=== PATIENT | male | born 1955 | race Caucasian/White ===

== ENCOUNTER → 2016-08-07 | Outpatient (CLI) | payer OTHER ==
--- NOTE | 2016-08-07 17:09 | DX ---
Cervical Spine, Three Views History: Follow-up cervical fractures, S12.9 XXD Comparison: April 17, 2016 Findings: Alignment is anatomic. Spinous process fractures of C5 and C6 have solidly healed.. It is d ifficult to determine if the displaced T1 spinous process fracture demonstrates evidence for healing or not, due to overlying soft tissue from the shoulders. There is no prevertebral soft tissue swellin g. No fracture is identified. Impression: The C5 and C6 spinous process fractures have solidly healed. Indeterminate evaluation of the T1 spinous process fracture..
--- NOTE | 2016-08-07 17:16 | DX ---
Thoracic spine, three views History: Follow-up fusion, S22.058D Comparison: March 20, 2016, Findings: Alignment is anatomic. A mild thoracic dextroscoliosis is unchanged. A thoracic kyphosis is stable at approximately 55 degrees. Bilateral transpedicular screws and vertical supporting rods bet ween T4 and T9, sparing the pedicles of T7, appears stable. There is no evidence for right fracture o r uncoupling. There is no evidence for screw loosening. There is no paraspinal stripe widening. There is stable compressions of T5, T6 and T7. No new compressions have developed. Impression: Stable x5 months..
== END ==
LOC: BRMIMAGING 16:01
PROVIDERS: ATTEND Neurological Surgery
DX: S22.058D Other fracture of T5-T6 vertebra, subsequent encounter for fracture with routine healing (principal)
CPT/HCPCS: 72040-PO; 72070-PO

== ENCOUNTER → 2017-03-12 | Outpatient (CLI) | payer OTHER | LOC: BRMIMAGING 08:41 | PROVIDERS: ATTEND Neurological Surgery | DX: Z09 Encounter for follow-up examination after completed treatment for conditions other than malignant neoplasm (principal); Z98.1 Arthrodesis status; S22.060A Wedge compression fracture of T7-T8 vertebra, initial encounter for closed fracture; M40.204 Unspecified kyphosis, thoracic region | CPT/HCPCS: 72070-PO ==

== ENCOUNTER → 2018-02-18 | Outpatient (CLI) | payer OTHER | LOC: BRMIMAGING 14:08 | PROVIDERS: ATTEND Physician Assistant Surgical | DX: Z98.1 Arthrodesis status (principal) | CPT/HCPCS: 72070-PO ==